=== PATIENT | female | born 1940 | race Caucasian/White ===

== ENCOUNTER → 2021-11-30 | Day surgery (SDC) | payer OTHER ==
[~2021-11-30] VITALS: Ht 167.6 cm; Wt 65.8 kg
[~2021-11-30] MED LIST: DULOXETINE HCL30 MG PO; LOSARTAN POTASS25 MG PO; PERCOCET 5-3251 EACH PO; VITAMIN B122500 MCG PO
[2021-11-30 08:34] LABS: HCT 40.1 % (37.0-47.0); HGB 13.2 g/dl (12.5-16.0); MCH 30.9 pg (25.0-31.0); MCHC 32.9 g/dL (32.0-36.0); MCV 93.9 fL (78.0-100.0); MPV 9.2 fL (6.0-9.5); RBC 4.27 M/uL (4.20-5.40); RDW 12.5 % (11.5-14.0); WBC 4.9 K/uL (4.0-10.5)
[2021-11-30 08:46] LABS: BUN/CREAT RATIO (CALC) 29.4 RATIO; CREATININE 0.68 mg/dL (0.51-0.95); POTASSIUM 4.1 mmol/L (3.5-5.1)
== END | disposition home or self-care (01) ==
LOC: FAS 11-26 09:00
PROVIDERS: Anesthesiology; Obstetrics & Gynecology
DX: L72.3 Sebaceous cyst (principal); Z90.710 Acquired absence of both cervix and uterus; Z98.51 Tubal ligation status
CPT/HCPCS: 36415; 80048; 86850; 86900; 86901; 93005; J2250; J2704; J3010; J7120